=== PATIENT | female | born 1990 | race Caucasian/White ===

== ENCOUNTER → 2021-05-22 12:49 | Outpatient (CLI) | payer OTHER, MEDICAID, SELFPAY ==
--- NOTE | 2021-05-22 12:51 | DI.US.S_ITS ---
PROCEDURE: US PELVIC COMPLETE INDICATIONS: SPOTTING TECHNIQUE: Real-time scanning was performed of the pelvic organs, with image documentation. Additional endovaginal scanning was necessary due to incomplete visualization of the adnexal and endometrial structures by transabdominal scanning. COMPARISON: None. FINDINGS: Uterus: Uterus is normal in size at 7.1 x 3.8 x 3.2 cm. The endometrium measures 1.7 mm in combined thickness. Ovaries: Right ovary measures 3.5 x 2.3 x 1.7 cm. Left ovary measures 3.0 x 2.7 x 1.2 cm. Other: No pathologic free abdominal or pelvic fluid. IMPRESSION: Unremarkable exam. Dictated by: Sylvie Aguiar M.D. on 05/22/2021 at 16:35 Approved by: Sylvie Aguiar M.D. on 05/22/2021 at 16:41
[2021-05-22 14:51] LABS: Add Manual Diff / Slide Review NO; Basophils Absolute Auto 0 /uL (0-100); Basophils Percent Auto 0.4 % (0-2); Eosinophils Absolute Auto 100 /uL (0-450); Hematocrit 39.7 % (36-46); Hemoglobin 13.1 g/dL (12.0-16.0); Lymphocytes Absolute Auto 1900 /uL (1100-4500); Mean Corpuscular Volume 94.1 fL (80-100); Monocytes Absolute Auto 600 /uL (0-900); Neutrophils Absolute Auto 5700 /uL (1500-7000); Neutrophils Percent Auto 68.6 % (50-75); Platelet Count 230 X10^3/uL (150-400); Red Blood Cell Count 4.22 X10^6/uL (4.0-5.2); Red Cell Distribution Width 12.9 % (11.6-14.8); White Blood Cell Count 8.4 X10^3/uL (4.5-11.0)
[2021-05-22 15:02] LABS: Alanine Aminotransferase 12 IU/L (<35); Albumin 4.4 g/dL (3.5-5.0); Albumin Globulin Ratio 1.5 (1.0-2.8); Alkaline Phosphatase 34 U/L (38-126); Aspartate Aminotransferase 26 IU/L (14-36); BUN Creatinine Ratio 14.5 (6-22); Bilirubin Total 0.4 mg/dL (0.2-1.3); Blood Urea Nitrogen 9 mg/dL (7-17); Calcium 9.4 mg/dL (8.4-10.2); Carbon Dioxide 27 mmol/L (22-32); Chloride 103 mmol/L (98-107); Estimated Glomerular Filt Rate > 60.0 mL/min (>60); Globulin 2.9 g/dL (1.7-4.1); Glucose 83 mg/dL (70-100); HEMOLYSIS < 15 (0-50); Potassium 4.2 mmol/L (3.4-5.1); Sodium 136 mmol/L (137-145); Total Protein 7.3 g/dL (6.3-8.2)
== END ==
PROVIDERS: PCP Registered Nurse; Referring Provider Registered Nurse; Visit Provider Registered Nurse
DX: N93.9 Abnormal uterine and vaginal bleeding, unspecified (principal); B00.1 Herpesviral vesicular dermatitis; Z30.41 Encounter for surveillance of contraceptive pills; Z79.899 Other long term (current) drug therapy
CPT/HCPCS: 36415; 76830; 76856; 80053; 85025

== ENCOUNTER → 2021-12-04 07:31 | Outpatient (CLI) | payer OTHER, SELFPAY ==
--- NOTE | 2021-12-04 07:32 | DI.RAD.S_ITS ---
PROCEDURE: XR KNEE RT 3V INDICATIONS: Knee Injury TECHNIQUE: 3 views of the knee were acquired. COMPARISON: None. FINDINGS: Bones: No fractures or dislocations. No suspicious bony lesions. ACL repair has been performed. Soft tissues: No joint effusion. No suspicious soft tissue calcifications. IMPRESSION: No acute fracture. No osseous lesion. If symptoms and/or clinical suspicion for pathology persist, further assessment with repeat, or advanced imaging (e.g., CT, MRI, or bone scan) may be helpful for further assessment. Dictated by: Ambrose Simental M.D. on 12/04/2021 at 8:23 Approved by: Ambrose Simental M.D. on 12/04/2021 at 8:24
== END ==
PROVIDERS: PCP Registered Nurse; Referring Provider Nurse Practitioner Family; Visit Provider Nurse Practitioner Family
DX: S89.91XA Unspecified injury of right lower leg, initial encounter (principal); X58.XXXA Exposure to other specified factors, initial encounter
CPT/HCPCS: 73562

== ENCOUNTER → 2021-12-19 13:03 | Outpatient (CLI) | payer OTHER, SELFPAY ==
--- NOTE | 2021-12-19 13:05 | DI.MRI.S_ITS ---
PROCEDURE: MR KNEE RT WO CON INDICATIONS: knee pain TECHNIQUE: Noncontrast sagittal PD fast spin echo and T2 fast spin echo with fat saturation, sagittal 3-D FLASH with fat saturation; coronal T1 spin echo and PD fast spin echo with fat saturation, and axial PD fast spin echo with fat saturation through the knee. COMPARISON: None. FINDINGS: Image quality: Excellent. Menisci: Complex oblique tear involving posterior horn of medial meniscus is seen extending to both superior and inferior articulating surface. Peripheral displacement of medial meniscus bowing medial collateral ligament is seen. There is no focal lateral meniscal tear. The meniscal root ligaments appear intact. Cruciate ligaments: There is prior ACL repair with attenuated appearing ACL graft concerning for moderate to high-grade partial-thickness tear of the graft. There are suggestion of a few intact fibers extending along the expected course of ACL graft. No definite full-thickness ACL graft rupture. PCL is intact. Medial structures: Low-grade MCL sprain is seen. The posterior oblique ligament, semimembranosus tendon insertions, oblique popliteal ligament, and meniscocapsular junction appear intact. Visualized portions of the pes anserinus tendons appear normal. No abnormal bursal fluid. Lateral structures: There is low-grade LCL sprain/partial-thickness tear. The long and short heads of the biceps femoris tendon appear intact. The popliteus tendon appears normal; the popliteofibular ligament appears intact. The posterosuperior and anteroinferior popliteomeniscal fascicles appear intact. The arcuate and fabellofibular ligaments appear intact, on either side of the lateral inferior geniculate artery. Iliotibial band appears normal. Anterior structures: The quadriceps and patellar tendons appear intact. Patellar alignment is normal. No femoral trochlear dysplasia or ventral trochlear prominence. No edema in the infrapatellar fat pad. Bones and cartilage: Postsurgical changes are noted in lateral femoral condyle and medial portion of proximal tibia. Slight anterior translation of tibia in relation to distal femur is seen. Marrow edema is noted in weight-bearing portion of lateral femoral condyle and posterior portion of proximal tibia extending to lateral tibial plateau without discrete fracture line. Joint space: There is small to moderate joint effusion. There is a small popliteal cyst measures up to 1.1 x 1.8 x 2.7 cm in size. Normal appearing synovial plicae are incidentally noted. IMPRESSION: 1. Prior ACL repair with postsurgical changes. Bony contusion in lateral femoral condyle and posterior portion of proximal tibia extending to lateral tibial plateau without fracture line. Slight anterior tibial translation. No acute fracture or dislocation. Small to moderate joint effusion and popliteal cyst as above. 2. Finding is concerning for moderate to high-grade partial-thickness tear involving ACL graft. No definite full-thickness ACL graft rupture. PCL is intact. 3. Complex oblique tear involving posterior horn of medial meniscus extending to both superior and inferior articulating surfaces. No focal lateral meniscal tear. 4. Low-grade MCL and LCL sprain. Dictated by: Sanchez Abreu M.D. on 12/19/2021 at 14:40 Approved by: Sanchez Abreu M.D. on 12/19/2021 at 14:50
== END ==
PROVIDERS: PCP Registered Nurse; Referring Provider Family Medicine; Visit Provider Family Medicine
DX: S83.231A Complex tear of medial meniscus, current injury, right knee, initial encounter (principal); S83.411A Sprain of medial collateral ligament of right knee, initial encounter; S83.421A Sprain of lateral collateral ligament of right knee, initial encounter; M25.561 Pain in right knee; Z98.890 Other specified postprocedural states
CPT/HCPCS: 73721

== ENCOUNTER → 2022-01-09 09:55 | Outpatient (CLI) | payer OTHER, SELFPAY ==
[2022-01-09 10:41] LABS: Appearance Urine UA CLEAR; Bilirubin Urine UA NEGATIVE (NEGATIVE); Color Urine UA YELLOW; Glucose Urine UA NEGATIVE (Negative); Ketones Urine UA NEGATIVE (NEGATIVE); Leukocyte Esterase Urine UA NEGATIVE (NEGATIVE); Nitrite Urine UA NEGATIVE (Negative); Occult Blood Urine UA TRACE-INTACT (Negative); Protein Urine UA NEGATIVE (Negative); Urobilinogen Urine UA 0.2 E.U./dL (0.2)
[2022-01-09 10:44] LABS: Pregnancy Test Urine Negative (Negative); pH Urine UA 5.5 (4.5-8.0)
[2022-01-09 11:34] LABS: Hepatitis B Surface Antigen NEGATIVE s/c (NEGATIVE); TSH w/ Reflex to FT4 0.41 uIU/mL (0.47-4.68)
[2022-01-09 11:53] LABS: HIV 1 & 2 Ab/Ag 4th Gen Combo NEGATIVE (NEGATIVE); Hep C Virus Ab w/Reflex Quant NEGATIVE s/c (NEGATIVE)
[2022-01-09 11:58] LABS: Free T4, Direct Thyroxine 1.23 ng/dL (0.78-2.19)
[2022-01-09 12:10] LABS: Urine N gonorrhoeae NOT DETECTED
[2022-01-09 12:11] LABS: Urine Chlamydia DETECTED
[2022-01-10 07:13] LABS: RPR Screen Non Reactive (Non Reactive)
[2022-01-10 08:03] LABS: HSV 2 IGG AB < 0.91 index (0.00-0.90)
[2022-01-10 17:28] LABS: HSV I/II IgM <0.91 Ratio (0.00-0.90)
== END ==
PROVIDERS: PCP Registered Nurse; Referring Provider Registered Nurse; Visit Provider Registered Nurse
DX: F41.8 Other specified anxiety disorders (principal); Z11.3 Encounter for screening for infections with a predominantly sexual mode of transmission; Z79.899 Other long term (current) drug therapy; N39.0 Urinary tract infection, site not specified
CPT/HCPCS: 36415; 81003; 81025; 84439; 84443; 86592; 86694; 86695; 86696; 86803; 87340; 87389; 87491; 87591